=== PATIENT | female | born 1965 | race African-American/Black ===

== ENCOUNTER 2021-01-29 07:17 | Emergency (ER) | payer SELFPAY ==
[~2021-01-29] VITALS: Ht 149.9 cm; Wt 72.6 kg
--- NOTE | 2021-01-29 07:17 | NUR ---
PT BIBSELF C/O COUGH X2 WEEKS. 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 WILL CONTINUE TO MONITOR.
--- NOTE | 2021-01-29 07:36 | NUR ---
AT BEDSIDE FOR EVAL.
--- NOTE | 2021-01-29 07:40 | NUR ---
PT REFUSED BLOOD DRAW. AWARE.
--- NOTE | 2021-01-29 07:47 | NUR ---
URINE SPECIMEN COLLECTED AND SENT TO LAB.
[2021-01-29] MEDS ORDERED: ALBUTEROL FS 2.5 MG/3 ML VIAL.NEB CONTNEB ONE (08:00)
[2021-01-29] MEDS ORDERED: IPRATROPIUM NEB FS 0.5 MG/2.5 ML AMPUL.NEB NEB ONE (08:00)
--- NOTE | 2021-01-29 08:00 | NUR ---
FADI AND TOÑO SPECIMEN OBTAINED AND SENT TO LAB.
[2021-01-29] MEDS ORDERED: IPRATROPIUM NEB FS 0.5 MG/2.5 ML AMPUL.NEB ONE (08:05)
[2021-01-29] MEDS ORDERED: ALBUTEROL FS 2.5 MG/3 ML VIAL.NEB ONE (08:05)
[2021-01-29 08:07] LABS: BILIRUBIN,URINE NEGATIVE (NEGATIVE); COLOR,URINE YELLOW (YELLOW); LEUKOCYTE ESTERASE ,URINE NEGATIVE (NEGATIVE); NITRITE, URINE NEGATIVE (NEGATIVE); PROTEIN,URINE NEGATIVE (NEGATIVE); UGLUCOSE >=1000 mg/dL (NEGATIVE); UROBILINOGEN,URINE 0.2 EU/dL (0.2)
--- NOTE | 2021-01-29 08:11 | NUR ---
PIANO CASE AND BENCH ASSEMBLER AT BEDSIDE FOR XRAY.
[2021-01-29 08:12] LABS: BACTERIA,URINE None seen /HPF (None Seen); RBC,URINE NONE SEEN /HPF (0-2); SQUAMOUS EPITHELIAL CELL,UR Rare /HPF (None Seen); WBC,URINE NONE SEEN /HPF (0-3)
[2021-01-29] MEDS ORDERED: IBUP-1957 PO (08:41)
[2021-01-29] MEDS ORDERED: PROM118S PO (08:41)
--- NOTE | 2021-01-29 08:50 | NUR ---
Patient discharged to home in stable condition. Written and verbal after care instructions given. Patient verbalizes understanding of instruction.
[2021-01-29 08:51] VITALS: BP 123/73
== END 2021-01-29 08:51 | disposition home or self-care (01) ==
LOC: ER 07:28
DX: J42 Unspecified chronic bronchitis (principal); R11.0 Nausea; Z20.822 Contact with and (suspected) exposure to COVID-19; Z88.0 Allergy status to penicillin; R03.0 Elevated blood-pressure reading, without diagnosis of hypertension
CPT/HCPCS: 71045; 81001; 87426; 87804; 94640 ×2; 99284; C9803